=== PATIENT | female | born 1955 | race Caucasian/White ===

== ENCOUNTER 2019-12-09 18:48 | Emergency (ER) | payer BC ==
[~2019-12-09] VITALS: Ht 172.7 cm; Wt 86.4 kg
[2019-12-09] MEDS ORDERED: DIAZEPAM 5 MG TABLET ONE (19:10)
[2019-12-09] MEDS ORDERED: HYDROcodone/APAP 5/325 TABLET ONE (19:10)
[2019-12-09] MEDS ORDERED: KETOROLAC 30 MG/1 ML ONE (19:10)
[2019-12-09] MEDS ORDERED: DIAZEPAM 5 MG TABLET PO ONE (19:30)
[2019-12-09] MEDS ORDERED: HYDROcodone/APAP 5/325 TABLET PO ONE (19:30)
[2019-12-09] MEDS ORDERED: KETOROLAC 30 MG/1 ML IM ONE (19:30)
[2019-12-09 19:56] VITALS: BP 125/78
--- NOTE | 2019-12-09 19:58 | NUR ---
PT REPORTS PAIN IS BETTER AT A 8/10 AFTER MEDICATIONS.
== END 2019-12-09 19:59 | disposition home or self-care (01) ==
LOC: ED 19:47
DX: S29.012A Strain of muscle and tendon of back wall of thorax, initial encounter (principal); X58.XXXA Exposure to other specified factors, initial encounter; Y93.89 Activity, other specified; Y92.89 Other specified places as the place of occurrence of the external cause; Y99.8 Other external cause status
CPT/HCPCS: 96372; 99283; J1885